=== PATIENT | male | born 1970 | race African-American/Black ===

== ENCOUNTER 2017-10-14 23:40 | Emergency (ER) | payer OTHER ==
[2017-10-15] MEDS: BENZONATATE 100 MG CAP PO (03:09)
== END 2017-10-15 04:19 | disposition home or self-care (01) ==
LOC: M ED 23:40
DX: T46.4X5A Adverse effect of angiotensin-converting-enzyme inhibitors, initial encounter (principal); I10 Essential (primary) hypertension; F17.200 Nicotine dependence, unspecified, uncomplicated; Z79.4 Long term (current) use of insulin; Z79.899 Other long term (current) drug therapy
CPT/HCPCS: 71046